=== PATIENT | female | born 1945 | race Caucasian/White ===

== ENCOUNTER 2019-09-07 11:03 | Day surgery (SDC) | payer MEDICARE ==
[~2019-09-07 11:03] MED LIST: CRAN500T2 PO; FURO20TA3 PO; GARL10002 PO; IV RINGERS,LACTATED 1000ML 1,000 ML IV SCH; LIDOCAINE 1% PF 2 ML VIAL. ID PRN; METO-239 PO; ONDANSETRON PF 4 MG/2 ML VIAL. IV PRN; PROCHLORPERAZINE 10 MG/2 ML VIAL. IV PRN; RIVA20TA2 PO; VIT1CAPS12 PO; [UNRECOGNIZED DRUG - OTHER] PO; fentaNYL PF VIAL 100 MCG/2 ML VIAL IV PRN
--- NOTE | 2019-09-07 12:14 | EKG ---
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
[2019-09-07 12:28] LABS: HEMATOCRIT 39.7 % (36.0-47.0); RED BLOOD COUNT 4.43 x10^6/uL (3.50-5.40); RED CELL DISTRIBUTION WIDTH 14.1 % (11.5-14.5); WHITE BLOOD COUNT 6.5 x10^3/uL (4.0-11.0)
[2019-09-07 12:37] LABS: CALCIUM 8.9 mg/dL (8.5-10.1); CREATININE 0.8 mg/dL (0.6-1.0); GFR 70.5; MAGNESIUM 1.9 mg/dL (1.8-2.4); POTASSIUM 3.6 mmol/L (3.5-5.1)
[2019-09-07 12:44] LABS: PROTHROMBIN TIME PATIENT 28.7 SEC (11.7-14.0)
[2019-09-07] MEDS ORDERED: PROPOFOL 20 ML IV ONE (13:00)
[2019-09-07] MEDS ORDERED: LIDOCAINE 2% TOPICAL JELLY 30GM TUBE. TP ONE (13:10)
[2019-09-07] MEDS ORDERED: LIDOCAINE 2% VISCOUS 15 ML SOLUTION. ONE (13:10)
[2019-09-07] MEDS ORDERED: BENZOCAINE ONE 20% MUCOSAL SPRAY. (13:10)
[2019-09-07 14:10] VITALS: BP 107/50
--- NOTE | 2019-09-07 14:11 | EKG ---
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
--- NOTE | 2019-09-07 15:27 | CARD ---
MR#: [id number] Date of Study: 09/07/2019 Ordering Physician: ALESSIA DIA, Referring Physician: LAESSIA DIA, Tech: Kirsten Villasenor APPROVED REPORT EXAM: Transesophageal echocardiogram with color flow Doppler and Synchronized Cardioversion. INDICATION Atrial Fibrillation Reason For Test : Rule out Intracardiac Thrombus. PROCEDURE After obtaining informed consent, patient underwent transesophageal echo in the PACU. Type of Sedation : General Anesthesia Sedation was administered by Sandy Felix. Sedation was achieved with Propofol 150 mg intravenously. Transesophageal probe was inserted and advanced into esophagus by Sumit Dia MD. The ROMARIO was performed without complications. Synchronized Cardioversion attempted: Successful Synchronized Cardioversion acheived with 200 Joules after 1 attempt(s). Rhythm following Synchronized Cardioversion: Normal Sinus Rhythm Throughout the procedure, the blood pressure, pulse oximetry, cardiac rhythm, and rate were monitored . LEFT VENTRICLE The left ventricle is normal size. There is normal left ventricular wall thickness. The systolic func tion is severely impaired. EF 30% There is severe global hypokinesis. Diastology not performed. No le ft ventricle thrombus noted on this study. RIGHT VENTRICLE The right ventricle is normal size. There is normal right ventricular wall thickness. The right ventr icular systolic function is normal. ATRIA The left atrium is borderline dilated. The right atrium size is normal. The interatrial septum is int act with no evidence for an atrial septal defect or patent foramen ovale as noted on 2-D or Doppler i maging. There is no thrombus noted in the left atrial appendage. AORTIC VALVE The aortic valve is normal in structure and function. Doppler and Color Flow revealed mild aortic reg urgitation. There is no significant aortic valvular stenosis. MITRAL VALVE The mitral valve is normal in structure and function. There is no evidence of mitral valve prolapse. There is no mitral valve stenosis. Doppler and Color-flow revealed trace to mild mitral regurgitation . TRICUSPID VALVE The tricuspid valve is normal in structure and function. Doppler and Color Flow revealed trace tricus pid regurgitation. There is no tricuspid valve stenosis. PULMONIC VALVE The pulmonic valve is not well visualized. Doppler and Color Flow revealed trace pulmonic valvular re gurgitation. There is no pulmonic valvular stenosis. GREAT VESSELS The aortic root is normal in size. The IVC is normal in size and collapses >50% with inspiration. Critical Notification Critical Value: No <Conclusion> The systolic function is severely impaired. EF 30% There is severe global hypokinesis. There is no thrombus noted in the left atrial appendage. Successful CVN to SR with a 200 J synchronized CVN. Signed by : Alessia Dia, Electronically Approved : 09/07/2019 15:26:22
== END 2019-09-07 14:30 | disposition home or self-care (01) ==
LOC: SURG 11:03
PROVIDERS: ATTEND Internal Medicine Cardiovascular Disease
DX: I48.91 Unspecified atrial fibrillation (principal); I34.0 Nonrheumatic mitral (valve) insufficiency; I37.1 Nonrheumatic pulmonary valve insufficiency; I10 Essential (primary) hypertension; E78.00 Pure hypercholesterolemia, unspecified; E66.9 Obesity, unspecified; Z87.01 Personal history of pneumonia (recurrent); Z87.39 Personal history of other diseases of the musculoskeletal system and connective tissue; Z90.710 Acquired absence of both cervix and uterus; Z90.11 Acquired absence of right breast and nipple; Z85.3 Personal history of malignant neoplasm of breast; Z98.51 Tubal ligation status
CPT/HCPCS: 36415; 80048; 83735; 85027; 85610; 92960; 93005; 93312; 93325; J2704; 93320

== ENCOUNTER → 2019-10-27 | Outpatient (CLI) | payer MEDICARE ==
[~2019-10-27] MED LIST changes: -IV RINGERS,LACTATED 1000ML 1,000 ML IV SCH; -LIDOCAINE 1% PF 2 ML VIAL. ID PRN; -ONDANSETRON PF 4 MG/2 ML VIAL. IV PRN; -PROCHLORPERAZINE 10 MG/2 ML VIAL. IV PRN; -fentaNYL PF VIAL 100 MCG/2 ML VIAL IV PRN
[2019-10-27 13:13] LABS: PROTHROMBIN TIME PATIENT 23.5 SEC (11.7-14.0)
[2019-10-27 13:26] LABS: ALBUMIN 3.2 g/dL (3.4-5.0); ALBUMIN/GLOBULIN RATIO 1.3 (1.0-1.7); CREATININE 0.9 mg/dL (0.6-1.0); GFR 61.5; POTASSIUM 3.9 mmol/L (3.5-5.1); TOTAL BILIRUBIN 0.7 mg/dL (0.2-1.0); TOTAL PROTEIN 5.7 g/dL (6.4-8.2)
--- NOTE | 2019-10-27 17:12 | RAD ---
CHEST PA LATERAL History: Fever and cough for 10 days Comparison: None. Findings: Frontal and lateral views of chest were obtained. The cardiomediastinal silhouette is normal. Sonographically it is slightly congested. Interstitial thickening or edema of the lung arrington noted. Small right basilar pleural effusion is present.. There is no acute bone abnormality. Surgical clips involve the upper abdomen. IMPRESSION: Mild pulmonary vasculature congestion with interstitial thickening which may represent interstitial edema. Small right pleural effusion. Electronically signed by: Tucker Barney MD (10/27/2019 5:09 PM) [facility]
== END | disposition home or self-care (01) ==
LOC: LAB 12:19
PROVIDERS: ATTEND Internal Medicine Cardiovascular Disease
DX: J90 Pleural effusion, not elsewhere classified (principal); J92.9 Pleural plaque without asbestos; I48.91 Unspecified atrial fibrillation
CPT/HCPCS: 36415; 71046; 80053; 85610

== ENCOUNTER 2019-11-16 06:39 | Outpatient (CLI) | payer MEDICARE ==
[2019-11-16] VITALS (11 sets, daily range): BP systolic 146–234; BP diastolic 63–112
[~2019-11-16] VITALS: Ht 160 cm; Wt 109.8 kg
[2019-11-16] MEDS ORDERED: LIDOCAINE 1% PF 2 ML VIAL. ONE (07:33)
[2019-11-16] MEDS ORDERED: IODIXANOL 320 MG/ML 100 ML VIAL. ONE (07:34)
[2019-11-16] MEDS ORDERED: HEPARIN for ARTERIAL LINE 1,500 ML ONE (07:34)
[2019-11-16 07:36] LABS: HEMATOCRIT 46.7 % (36.0-47.0); HEMOGLOBIN 14.9 g/dL (12.0-15.5); RED BLOOD COUNT 5.38 x10^6/uL (3.50-5.40); RED CELL DISTRIBUTION WIDTH 15.4 % (11.5-14.5); WHITE BLOOD COUNT 7.2 x10^3/uL (4.0-11.0)
[2019-11-16 07:42] LABS: CALCIUM 9.1 mg/dL (8.5-10.1); CREATININE 0.9 mg/dL (0.6-1.0); GFR 61.5; POTASSIUM 3.7 mmol/L (3.5-5.1)
[2019-11-16] MEDS ORDERED: CRESTOR5 MG PO (07:47)
[2019-11-16] MEDS ORDERED: AMIO200T4 PO (07:47)
[2019-11-16] MEDS ORDERED: VERAPAMIL 5 MG/2 ML VIAL. ONE (08:28)
[2019-11-16] MEDS ORDERED: HEPARIN for IV BOLUS 10,000 UNIT/10 ML VIAL. ONE (08:28)
[2019-11-16] MEDS ORDERED: fentaNYL PF VIAL 100 MCG/2 ML VIAL ONE (08:28)
[2019-11-16] MEDS ORDERED: NITROGLYCERIN 200 MCG/2 ML SYRINGE FOR CATH/VASC LAB. ONE ×2 (08:28→10:01)
[2019-11-16] MEDS ORDERED: MIDAZOLAM HCL/PF 2 MG/2 ML VIAL. ONE (08:28)
[2019-11-16] MEDS ORDERED: NITROGLYCERIN 200 MCG/2 ML SYRINGE FOR CATH/VASC LAB. ICAR ONE (09:15)
[2019-11-16] MEDS ORDERED: fentaNYL PF VIAL 100 MCG/2 ML VIAL IV ONE (09:15)
[2019-11-16] MEDS ORDERED: IODIXANOL 320 MG/ML 100 ML VIAL. IART ONE (09:15)
[2019-11-16] MEDS ORDERED: HEPARIN for IV BOLUS 10,000 UNIT/10 ML VIAL. IART ONE (09:15)
[2019-11-16] MEDS ORDERED: VERAPAMIL 5 MG/2 ML VIAL. IART ONE (09:15)
[2019-11-16] MEDS ORDERED: LIDOCAINE 1% PF 2 ML VIAL. INJ ONE (09:15)
[2019-11-16] MEDS ORDERED: NITROGLYCERIN 200 MCG/2 ML SYRINGE FOR CATH/VASC LAB. IART ONE (09:15)
[2019-11-16] MEDS ORDERED: MIDAZOLAM HCL/PF 2 MG/2 ML VIAL. IV ONE (09:15)
[2019-11-16] MEDS ORDERED: CONTRAST GIVEN. MC PRN (09:30)
[2019-11-16] MEDS ORDERED: NITROGLYCERIN SUBLINGUAL 0.4 MG BOTTLE OF 25. SL PRN (09:45)
[2019-11-16] MEDS ORDERED: 0.9 % SODIUM CHLORIDE 10 ML DISP.SYRIN. IV PRN (09:45)
--- NOTE | 2019-11-16 10:17 | NUR ---
Patient back from heart catheterization and unable to take BP in right arm because of mastectomy and lymphedema. Cannot take BP in left arm because of radial site used for heart catheterization, BP taken in the lower extremities, readings are elevated per monitor. Dr. Dia informed of BP readings and he stated, during the case BP's were 130's/80's. Pt. is eating breakfast, frequent reminders to not use left arm, family at bedside and updates given.
--- NOTE | 2019-11-16 11:09 | CARD ---
MR#: [id number] Date of Study: 11/16/2019 Ordering Physician: ALESSIA DIA, Referring Physician: ALESSIA DIA, Tech: RT Adrian (R) APPROVED REPORT Technologist: Vilma Hunt RT (R) Nurse: Priyanka Candelaria R.N. Procedure(s) performed: FLUORO TIME: 11.6 MIN DOSE: 61.58 Gycm2 Contrast: 47ml Moderate Sedation: 48 min Coronary angiography HISTORY The patient is a 74 year-old female with a history of : coronary artery disease, hypertension, dyslip idemia. INDICATION The indication(s) include : dyspnea. [facility] Clinical Frailty Scale [facility] Clinical Frailty Scale: Moderately Frail Heart Failure Heart Failure: Yes If Yes, Newly Diagnosed: No If Yes, HF Type: Diastolic Systolic If Yes, NYHA Class: Class II PROCEDURE NARRATIVE INFORMED CONSENT: After explaining the risks and benefits of the procedure and alternatives, informed consent was obtained. The patient was brought electively to the cardiac catheterization lab. A timeout was performed confi rming the patient's name, date of , procedure, and site of procedure. All necessary personnel w ere wearing the appropriate protective equipment and radiation monitor devices. (See nursing notes for medications administered). ACCESS: The left wrist was sterilely prepped and draped in the usual fashion. The left wrist was infiltrated with 1 mL of 2% lidocaine for subcutaneous anesthesia. A 6 [place] Terumo glide sheath was inserted into the left radial artery without difficulty. CORONARY ANGIOGRAPHY: Right and left coronary angiography was performed using a 6Fr JL3.5/JR4 catheter. Multiple attempts were made to obtain an LVEDP but due to subclavian tortuosity, an LVEDP was unable to be measured and the pigtail catheter was not able to be advanced. All catheter exchanges and advancements were perf ormed over a guidewire. CLOSURE: At case completion the right radial sheath was removed and a Terumo radial band was applied with 13 m l of air. COMPLICATIONS: The patient tolerated the procedure well and there were no immediate complications. FINDINGS: HEMODYNAMICS: AO: 128/78 CORONARY ANGIOGRAPHY: LM is a large caliber vessel with normal angiographic appearance. LAD is a large caliber vessel with a proximal 50% stenosis. LCx is a moderate caliber non-dominant vessel with normal angiographic appearance. OM1 is a moderate caliber vessel with normal angiographic appearance. RCA is a large caliber dominant vessel with normal angiographic appearance. RPDA and RPL are moderate caliber vessels with normal angiographic appearance. Conclusion 1. One vessel CAD Recommendations 1. Aggressive medical therapy. Signed by : Alessia Dia, Electronically Approved : 11/16/2019 11:09:08
[2019-11-16] MEDS ORDERED: SACU1TAB PO (11:11)
--- NOTE | 2019-11-16 11:12 | NUR ---
Entresto prescription given and a sample bottle by Dr. Dia for patient to start. Dr. Dia educated patient and daughters about use of medication and when patient would need to follow up. Dr. Dia also gave patient prescription for labs to be done in 2 weeks. Patient to follow up with Dr. Dia in the office on WednesdayFebruary 13 at 10:15 a.m. Patient and family verbalized understanding.
--- NOTE | 2019-11-16 12:16 | NUR ---
Left radial TR Band removed per protocol, site cleaned and dressing applied. Discharge instructions reviewed and copies given to patient and family member. All questions answered. Pt transported via wheelchair to outpatient parking and pt's daughter is driving her home.
== END 2019-11-16 12:25 | disposition home or self-care (01) ==
LOC: CCL 06:39
PROVIDERS: ATTEND Internal Medicine Cardiovascular Disease
DX: R06.09 Other forms of dyspnea (principal); I25.10 Atherosclerotic heart disease of native coronary artery without angina pectoris; E78.5 Hyperlipidemia, unspecified; I48.91 Unspecified atrial fibrillation; I77.1 Stricture of artery; I10 Essential (primary) hypertension; Z88.1 Allergy status to other antibiotic agents; Z88.6 Allergy status to analgesic agent; Z88.8 Allergy status to other drugs, medicaments and biological substances; Z91.018 Allergy to other foods; Z91.013 Allergy to seafood; Z79.899 Other long term (current) drug therapy
CPT/HCPCS: 36415; 80048; 85027; 85610; 93454; C1769; C1892; J1644; J2250; J3010; J3490; Q9967; 99152; 99153

== ENCOUNTER → 2020-07-09 | Outpatient (CLI) | payer MEDICARE ==
[2019-11-16 12:10] VITALS: BP 205/76
[~2020-07-09] MED LIST changes: +AMIO200T4 PO; +CRESTOR5 MG PO; +SACU1TAB PO
--- NOTE | 2020-07-09 14:41 | CARD ---
MR#: [id number] Date of Study: 07/09/2020 Ordering Physician: ALESSIA STERLING, Referring Physician: ALESSIA STERLING, Tech: Linda Hernandez [facility] APPROVED REPORT EXAM: Two-dimensional and M-mode echocardiogram with Doppler and color Doppler. Other Information Quality : Good INDICATION Non-Ischemic Cardiomyopathy 2D DIMENSIONS RVDd3.5 (2.9-3.5cm)Left Atrium(2D)4.7 (1.6-4.0cm) IVSd1.2 (0.7-1.1cm)Aortic Root(2D)3.8 (2.0-3.7cm) LVDd6.0 (3.9-5.9cm)LVOT Diameter2.2 (1.8-2.4cm) PWd1.0 (0.7-1.1cm)LVDs4.4 (2.5-4.0cm) FS (%) 20.0 %SV91.0 ml LVEF(%)40.0 (>50%) Aortic Valve AoV Peak Mulugeta.110.6cm/sAoV VTI26.8cm AO Peak GR.4.9mmHgLVOT Peak Mulugeta.103.6cm/s AO Mean GR.3mmHgAVA (VMAX)3.71cm2 DAFNE (VTI)3.20ls8QU P 1/2 Rihl219hv Mitral Valve MV E Zoojewym08.5cm/sMV DECEL ZGTB773iu MV A Zxkfbvpk913.3cm/sE/A Ratio0.3 Tricuspid Valve TR P. Rmnjyvsv202yn/sRAP MEWALGEL14ekOx TR Peak Gr.42jkHjNPLR78weSb Pulmonary Vein S1 Scxgvebv78.1cm/sD2 Hdmljuvu99.8cm/s LEFT VENTRICLE The Left Ventricle is mildly dilated. There is mild concentric left ventricular hypertrophy. Left rosa tricle systolic function is moderately impaired. The Ejection Fraction is 35%. There is global hypoki nesis of the left ventricle. Transmitral Doppler flow pattern is Grade I-abnormal relaxation pattern. RIGHT VENTRICLE The right ventricle is mildly dilated. Systolic function is mildly reduced. ATRIA The left atrium is mildly dilated. The right atrium is moderately dilated. The interatrial septum is intact with no evidence for an atrial septal defect or patent foramen ovale as noted on 2-D or Dopple r imaging. AORTIC VALVE The aortic valve is calcified but opens well. Doppler and Color Flow revealed mild aortic regurgitati on. There is no significant aortic valvular stenosis. MITRAL VALVE The mitral valve is calcified but opens well. There is no evidence of mitral valve prolapse. There is no mitral valve stenosis. Doppler and Color-flow revealed mild mitral regurgitation. TRICUSPID VALVE The tricuspid valve is normal in structure and function. Doppler and Color Flow revealed mild tricusp id regurgitation. There is moderate pulmonary hypertension. The PA pressure was estimated at 51 mmHg. There is no tricuspid valve stenosis. PULMONIC VALVE The pulmonic valve is not well visualized. Doppler and Color Flow revealed mild pulmonic valvular reg urgitation. There is no pulmonic valvular stenosis. GREAT VESSELS The aortic root is normal in size. The ascending aorta is mildly dilated at 3.5 cm. The IVC is dilate d and collapses <50% with inspiration. PERICARDIAL EFFUSION There is no evidence of significant pericardial effusion. Critical Notification Critical Value: No <Conclusion> Left ventricle systolic function is moderately impaired. The Ejection Fraction is 35%. Transmitral Doppler flow pattern is Grade I-abnormal relaxation pattern. Mild aortic regurgitation. Mild mitral regurgitation. Mild tricuspid regurgitation. There is moderate pulmonary hypertension. The PA pressure was estimated at 51 mmHg. There is no evidence of significant pericardial effusion. Signed by : Mundo Vargas, Electronically Approved : 07/09/2020 14:41:19
== END | disposition home or self-care (01) ==
LOC: ECHO 12:50
PROVIDERS: ATTEND Internal Medicine Cardiovascular Disease
DX: I08.8 Other rheumatic multiple valve diseases (principal); I27.20 Pulmonary hypertension, unspecified
CPT/HCPCS: 93306

== ENCOUNTER 2021-03-09 17:50 | Emergency (ER) | payer MEDICARE ==
[~2021-03-09] VITALS: Ht 157.5 cm; Wt 118.1 kg
[~2021-03-09 17:50] MED LIST changes: -AMIO200T4 PO; +AMIO200T6 PO; -CRAN500T2 PO; +CRAN500T3 PO
[2021-03-09] MEDS ORDERED: fentaNYL PF VIAL 100 MCG/2 ML VIAL ONE (18:38)
[2021-03-09] MEDS ORDERED: IV NORMAL SALINE 500ML BAG 500 ML IV ONE (18:45)
[2021-03-09] MEDS ORDERED: fentaNYL PF VIAL 100 MCG/2 ML VIAL IV ONE (18:45)
[2021-03-09 18:57] LABS: BILIRUBIN,URINE NEGATIVE (NEG); CLARITY,URINE CLEAR; COLOR,URINE YELLOW; NITRITE,URINE NEGATIVE (NEG); PROTEIN,URINE NEGATIVE (NEG-TRACE)
[2021-03-09 19:04] LABS: BACTERIA,URINE MODERATE /HPF (0-FEW); RBC,URINE 0 /HPF (0-2)
[2021-03-09 19:49] LABS: BASO % 0 % (0-3); EOS # 0.2 x10^3/uL (0.0-0.7); EOS % 2 % (0-3); HEMATOCRIT 36.7 % (36.0-47.0); HEMOGLOBIN 11.6 g/dL (12.0-15.5); LYMPH # 0.5 x10^3/uL (1.0-4.8); LYMPH % 5 % (24-48); MEAN CORPUSCULAR HEMOGLOBIN 28 pg (25-35); MEAN CORPUSCULAR HGB CONC 32 g/dL (31-37); MEAN CORPUSCULAR VOLUME 88 fL (79-100); MONO # 0.5 x10^3/uL (0.0-1.1); MONO % 5 % (0-9); NEUT # 9.3 x10^3/uL (1.8-7.7); NEUT % 88 % (31-73); PLATELET COUNT 214 x10^3/uL (140-400); RED BLOOD COUNT 4.16 x10^6/uL (3.50-5.40); RED CELL DISTRIBUTION WIDTH 14.9 % (11.5-14.5); WHITE BLOOD COUNT 10.5 x10^3/uL (4.0-11.0)
[2021-03-09 19:57] LABS: CALCIUM 8.5 mg/dL (8.5-10.1); CREATININE 0.8 mg/dL (0.6-1.0); GFR 70.3; POTASSIUM 4.6 mmol/L (3.5-5.1)
--- NOTE | 2021-03-09 19:59 | PHYS DOC ---
Past Medical History Past Medical History: A-Fib, CAD, High Cholesterol, Hypertension (BOSTON RHOADES DO) Past Surgical History: Gastric Bypass, Hysterectomy, Knee Replacement (Bilateral- Dr. Lito Sheldon ([place])) Additional Past Surgical Histo: cardio ablation,r mastectomy, (BOSTON RHOADES DO) Smoking Status: Never Smoker Alcohol Use: None Drug Use: None (BOSTON RHOADES DO) General Adult EDM: Chief Complaint: MECHANICAL FALL HPI: HPI: 75-year-old female presents via EMS status post mechanical trip and fall while at [facility] landing on her knees. Patient reports significant pain to left knee with associated swelling and bruising. EMS reports giving 100 mcg of fentanyl nasally, 100 mcg fentanyl IM, and 2.5mg Versed IM in route due to pain. Patient reports history of prior TKA by Dr. Lito Sheldon at [place]. Denies head trauma. Denies neck pain. Denies use of blood thinners. EMS reports deformity and shortening of leg. (BOSTON RHOADES DO) HPI: Assumed care at shift change-- Disposition pending Orthopedic consult. Initial plan was to transfer patient to [facility] where her previous orthopedic repair was performed. Previous ER provider discussed patient with [facility]--- Was informed that patients orthopedic doctor did not perform this type of repair and would be performed by another partner in the group. Patient advised she did not want to go to [facility] if not seen by her ortho doctor. Discussed patient with [facility] Orthopedic Dr Cast. Dr Cast in the ER and evaluated patient. Patient appears to be a complicated surgical case due to previous surgery. Dr Cast discussed patient with Dr Ziegler at [facility] who states he would accept patient. [facility] transfer line used. Patient accepted by Dr Olmedo. (MADELIN YU DO) Review of Systems: Review of Systems: Constitutional: Denies fever or chills Eyes: Denies redness or eye pain HENT: Denies nasal congestion or sore throat Respiratory: Denies cough or shortness of breath Cardiovascular: Denies chest pain or palpitations GI: Denies abdominal pain, nausea, or vomiting : Denies dysuria or hematuria Musculoskeletal: Denies back pain; reports left knee pain and swelling Integument: Denies rash or skin lesions; reports swelling and bruising of left knee Neurologic: Denies headache, focal weakness or sensory changes Complete systems were reviewed and found to be within normal limits, except as documented in this note. (BOSTON RHOADES DO) Heart Score: C/O Chest Pain: N/A (BOSTON RHOADES DO) C/O Chest Pain: N/A (MADELIN YU DO) Current Medications: Current Medications Medications (Trade) Dose Ordered Sig/Chanel Start Time Stop Time Status Last Admin Dose Admin Fentanyl Citrate (Fentanyl 2ml Vial) 50 mcg 1X ONCE 03/09/21 18:45 03/09/21 18:46 DC 03/09/21 18:47 50 MCG Sodium Chloride 500 ml @ 500 mls/hr 1X ONCE 03/09/21 18:45 03/09/21 19:44 DC 03/09/21 18:47 500 MLS/HR (BOSTON RHOADES DO) Allergies: Allergies: Allergies Coded Allergies Type Severity Reaction Last Updated Verified cephalexin Allergy Unknown Anaphylaxis 09/05/19 Yes codeine Allergy Unknown Unknown 09/05/19 Yes coffee (Coffea arabica) Allergy Unknown Nausea and Vomiting 09/05/19 Yes ibuprofen Allergy Unknown Unknown 09/05/19 Yes levofloxacin Allergy Unknown Unknown 09/05/19 Yes diogenes Allergy Unknown Hives 09/05/19 Yes papaya Allergy Unknown Hives 09/05/19 Yes shellfish derived Allergy Unknown Anaphylaxis 09/05/19 Yes sulfamethoxazole Allergy Unknown Unknown 09/05/19 Yes trimethoprim Allergy Unknown Unknown 09/05/19 Yes (BOSTON RHOADES DO) Physical Exam: PE: Constitutional: Well developed, morbidly obese, no acute distress, non-toxic appearance HENT: Normocephalic, atraumatic Eyes: Conjunctiva normal, no discharge Neck: Normal range of motion, no midline tenderness, supple Lungs & Thorax: No respiratory distress, equal chest rise and fall Abdomen: Soft, no tenderness; pelvis stable and nontender Skin: Warm, dry, no erythema, ecchymosis and swelling to lateral left knee Back: No midline tenderness, no CVA tenderness Extremities: Left knee swelling and ecchymosis with shortening of limb in comparison to right leg, distal DP and PT +2 Neurologic: Alert and oriented X 3, normal motor function, normal sensory function, no focal deficits noted Psychologic: Affect normal, judgment normal (BOSTON RHOADES DO) Current Patient Data: Labs: Laboratory Tests Test 03/09/21 18:50 Urine Collection Type Unknown Urine Color Yellow Urine Clarity Clear Urine pH 7.0 (<5.0-8.0) Urine Specific [place] <=1.005 (1.000-1.030) Urine Protein Negative mg/dL (NEG-TRACE) Urine Glucose (UA) Negative mg/dL (NEG) Urine Ketones (Stick) Negative mg/dL (NEG) Urine Blood Negative (NEG) Urine Nitrite Negative (NEG) Urine Bilirubin Negative (NEG) Urine Urobilinogen Dipstick 1.0 mg/dL (0.2 mg/dL) Urine Leukocyte Esterase Negative (NEG) Urine RBC 0 /HPF (0-2) Urine WBC 1-4 /HPF (0-4) Urine Bacteria Moderate /HPF (0-FEW) Vital Signs: Vital Signs Date Time Temp Pulse Resp B/P (MAP) Pulse Ox O2 Delivery O2 Flow Rate FiO2 03/09/21 19:31 64 18 195/76 (115) 94 Nasal Cannula 2.0 03/09/21 18:01 98.0 98.0 (BOSTON RHOADES DO) EKG: EKG: @1806 Sinus bradycardia at 59bpm, NO ST elevation, QRS 102ms, QT/QTc 472/472ms, baseline artifact noted, (BOSTON RHOADES DO) Radiology/Procedures: Radiology/Procedures: [] (BOSTON RHOADES DO) Course & Med Decision Making: Course & Med Decision Making Pertinent Labs and Imaging studies reviewed. (See chart for details) Patient presents via EMS status post mechanical trip and fall at [facility]. History of prior total knee arthroplasty by Dr. Lito Sheldon at [facility]. Patient received multiple doses of pain medication in route per EMS. Deformity noted to left lower extremity in comparison to right. Ice applied. Further pain medication provided. Concern for acute fracture given patient's findings. Kerri- operative laboratory data obtained and partially pending. EKG stable. CXR and XR of left hip and left knee obtained. Left knee imaging with fracture to distal femur above arthroplasty component. Patient requesting to be evaluated by her orthopedist- Dr. Lito Sheldon. Discussed case with Dr. Barrios (Orthopedics vibration technician for Dr. Sheldon). Dr. Barrois reports Dr. Sheldon does not perform that type of procedure. Discussed with patient regarding, who reports if she isn't able to see Dr. Sheldon then she could stay her at [place] if the orthopedist "specializes" in the type of procedure. Dr. Cast (orthopedics) therefore paged and pending call back. 1944- Sign out given to Dr. Yu for further evaluation and final disposition. . Discussed current findings and plan with patient and family, who acknowledge understanding and agreement. (BOSTON RHOADES DO) Dragon Disclaimer: Dragon Disclaimer: This electronic medical record was generated, in whole or in part, using a voice recognition dictation system. (BOSTON RHOADES DO) Departure Departure Impression: Primary Impression: Fracture of distal femur Qualified Codes: S72.402A - Unspecified fracture of lower end of left femur, initial encounter for closed fracture Additional Impression: Presence of total knee joint prosthesis Qualified Codes: Z96.653 - Presence of artificial knee joint, bilateral Disposition: 02 SHORT TERM HOSPITAL Condition: STABLE Referrals: Elis FULLER MD (PCP) BOSTON RHOADES DO March 09, 2021 19:59 MADELIN YU DO March 09, 2021 21:45
[2021-03-09 20:03] LABS: ALBUMIN 3.4 g/dL (3.4-5.0); ALBUMIN/GLOBULIN RATIO 1.1 (1.0-1.7); MAGNESIUM 1.9 mg/dL (1.8-2.4); TOTAL BILIRUBIN 0.6 mg/dL (0.2-1.0); TOTAL PROTEIN 6.6 g/dL (6.4-8.2)
[2021-03-09 20:13] LABS: CREATINE KINASE 61 U/L (26-192)
[2021-03-09 20:26] LABS: % BANDS 7 % (0-9); % EOS 1 % (0-5); % LYMPHS 8 % (24-48); % MONOS 6 % (0-10); % SEGS 78 % (35-66); PLT ESTIMATE ADEQUATE (ADEQUATE)
[2021-03-09] MEDS ORDERED: fentaNYL PF VIAL 100 MCG/2 ML VIAL IVP ONE ×2 (20:30→22:30)
--- NOTE | 2021-03-09 20:36 | RAD ---
XR BILATERAL HIP (WITH OR WITHOUT PELVIS) LEFT 2 VIEWS, XR KNEE_LT 1-2 VIEWS 03/09/2021 7:19 PM INDICATION: Pain, shortening status post fall. History of total knee arthroplasty. COMPARISON: None available. TECHNIQUE: AP view the pelvis and single dedicated view of each hip provided. 2 views of the left kn ee are provided. FINDINGS/ IMPRESSION: 1. Pelvis: Surgical clips are identified in the abdomen and lower pelvis. There is no acute fracture or dislocation. Joint spaces are maintained. Bone mineralization is within normal limits. Regional so ft tissues are within normal limits. There is no soft tissue gas or osseous erosion. No radiopaque fo reign body. 2. Left knee: Left total knee arthroplasty. There is supracondylar fracture of the distal femoral wiley physis with comminution displaced fracture fragment identified anteriorly measuring 3.1 cm. There is patella baja. Tibial component appears intact. No fibular fracture. Regional soft tissue swelling is present. Limited evaluation for joint effusion given degree of edema and subcutaneous fat. Electronically signed by: Nanci Torrez MD (03/09/2021 8:34 PM) [facility]
--- NOTE | 2021-03-09 20:37 | RAD ---
XR CHEST 1V 03/09/2021 7:19 PM INDICATION: Preoperative planning COMPARISON: 10/27/2019 TECHNIQUE: Portable frontal view of the chest is provided. FINDINGS: The cardiomediastinal silhouette is similar in appearance. Small right pleural effusion appears linus deena increased. There is adjacent compressive atelectasis versus infiltrate. Mild pulmonary vascular congestion. No pneumothorax. No suspicious osseous abnormality. IMPRESSION: Mild congestive heart failure with increase in small right pleural effusion with adjacent basilar ate lectasis versus infiltrate. Mild pulmonary vascular congestion. Electronically signed by: Nanci Torrez MD (03/09/2021 8:35 PM) [facility]
[2021-03-09 22:06] VITALS: BP 156/82
--- NOTE | 2021-03-10 01:36 | CONS ---
DATE OF CONSULTATION: 03/09/2021 CONSULTING PHYSICIAN: Dr. Willie Yu REASON FOR CONSULTATION: Left femur shattered. HISTORY OF PRESENT ILLNESS: The patient is a 75-year-old female, patient of Dr. Palumbo for her primary care physician who had gotten remotely a bilateral total knee arthroplasties done at [place] by Dr. Sheldon and today fell, landed on her knee and had immediate onset of pain, deformity, and inability to ambulate. She denies any other injury aside from just bruising or elbow, but otherwise is very functional as far as her elbow goes. Denies any loss of consciousness. No head injury, visual change, chest pain, shortness of breath or other constitutional symptoms. PHYSICAL EXAMINATION: On examination, she has severe pain with any movement of the left knee, really not possible to definitively establish whether her extensor mechanism is intact or not. She has gross instability of the knee due to the fracture, overlying skin is intact as is her distal pulses and sensation. Compartments are soft. Calf nontender. IMAGING: X-rays show a comminuted periprosthetic distal femur fracture above an otherwise well fixated total knee arthroplasty. She appears to have compromise of the patella based on the x-rays as the superior pole appears to be significantly elevated. She also has well-fixated tibial component, but has very little distal bone and what appears to be a cruciate retaining [employer] knee. TREATMENT PLAN: I discussed with the patient and family, my concern that I really do not have details on her implant at this point as that was done at [facility]. I did call Dr. Sheldon's group and the trauma surgeon environmental remediation consultant, Dr. Torres and answered my call back and I actually gave some my concerns to him about the amount and quality of bone attached to the femoral component of the knee appears to be very minimal and I am concerned with getting reasonable fixation with a plate and/or intramedullary melani fixation and it is very possible that with her extensor mechanism that even without consideration of her extensor mechanism compromise due to the apparent patellar fracture that she very well may need potentially a distal femoral replacement with a very significant constrained perhaps a rotating hinge construct, which again would be even more complicated by potentially incompetent extensor mechanism and frankly neither of us felt comfortable on her own with the option of fracture fixation alone. Originally, the emergency department outgoing physician, Dr. Méndez had called [place], but there is not a revision knee specialist in Dr. Sheldon's group and the other physician that does type of work at [facility] was not environmental remediation consultant or immediately available. Dr. Torres did contact one of his other colleagues, Dr. Cordova at [facility], who is a fellowship trained joint surgeon, who agreed to accept an consult on the patient and between the two of them, they would be able to handle management of this complex case. I spoke with the patient and the patient and family agree with this plan of action. They had originally preferred [facility]; however, I told them that the specialist there is not environmental remediation consultant, nor is he responding right at the moment laid on the Wednesday evening and they are willing to go to [place] under the care as discussed above. I returned to the emergency department and spoke with Dr. Yu who arranged appropriate transfer as a result. CONSULTING PHYSICIAN: Dr. Willie Yu REASON FOR CONSULTATION: Left femur shattered. HISTORY OF PRESENT ILLNESS: The patient is a 75-year-old female, patient of Dr. Palumbo for her primary care physician who had gotten remotely a bilateral total knee arthroplasties done at [place] by Dr. Sheldon and today fell, landed on her knee and had immediate onset of pain, deformity, and inability to ambulate. She denies any other injury aside from just bruising or elbow, but otherwise is very functional as far as her elbow goes. Denies any loss of consciousness. No head injury, visual change, chest pain, shortness of breath or other constitutional symptoms. PHYSICAL EXAMINATION: On examination, she has severe pain with any movement of the left knee, really not possible to definitively establish whether her extensor mechanism is intact or not. She has gross instability of the knee due to the fracture, overlying skin is intact as is her distal pulses and sensation. Compartments are soft. Calf nontender. IMAGING: X-rays show a comminuted periprosthetic distal femur fracture above an otherwise well fixated total knee arthroplasty. She appears to have compromise of the patella based on the x-rays as the superior pole appears to be significantly elevated. She also has well-fixated tibial component, but has very little distal bone and what appears to be a cruciate retaining [employer] knee. TREATMENT PLAN: I discussed with the patient and family, my concern that I really do not have details on her implant at this point as that was done at [facility]. I did call Dr. Sheldon's group and the trauma surgeon environmental remediation consultant, Dr. Torres and answered my call back and I actually gave some my concerns to him about the amount and quality of bone attached to the femoral component of the knee appears to be very minimal and I am concerned with getting reasonable fixation with a plate and/or intramedullary melani fixation and it is very possible that with her extensor mechanism that even without consideration of her extensor mechanism compromise due to the apparent patellar fracture that she very well may need potentially a distal femoral replacement with a very significant constrained perhaps a rotating hinge construct, which again would be even more complicated by potentially incompetent extensor mechanism and frankly neither of us felt comfortable on her own with the option of fracture fixation alone. Originally, the emergency department outgoing physician, Dr. Méndez had called [place], but there is not a revision knee specialist in Dr. Sheldon's group and the other physician that does type of work at [facility] was not environmental remediation consultant or immediately available. Dr. Torres did contact one of his other colleagues, Dr. Cordova at [facility], who is a fellowship trained joint surgeon, who agreed to accept an consult on the patient and between the two of them, they would be able to handle management of this complex case. I spoke with the patient and the patient and family agree with this plan of action. They had originally preferred [facility]; however, I told them that the specialist there is not environmental remediation consultant, nor is he responding right at the moment laid on the Wednesday evening and they are willing to go to [place] under the care as discussed above. I returned to the emergency department and spoke with Dr. Yu who arranged appropriate transfer as a result. AKILA/TENA PLEITEZ: Renetta TID: [id number]
== END 2021-03-09 22:36 | disposition short-term general hospital (02) ==
LOC: ER 17:50
DX: S72.402A Unspecified fracture of lower end of left femur, initial encounter for closed fracture (principal); Z20.822 Contact with and (suspected) exposure to COVID-19; M25.552 Pain in left hip; E78.00 Pure hypercholesterolemia, unspecified; I48.91 Unspecified atrial fibrillation; I25.10 Atherosclerotic heart disease of native coronary artery without angina pectoris; I10 Essential (primary) hypertension; Z95.1 Presence of aortocoronary bypass graft; Z96.653 Presence of artificial knee joint, bilateral; Z88.1 Allergy status to other antibiotic agents; Z88.5 Allergy status to narcotic agent; Z88.2 Allergy status to sulfonamides; Z91.018 Allergy to other foods; Z91.013 Allergy to seafood; Z88.8 Allergy status to other drugs, medicaments and biological substances; W01.0XXA Fall on same level from slipping, tripping and stumbling without subsequent striking against object, initial encounter; Y93.89 Activity, other specified; Y92.89 Other specified places as the place of occurrence of the external cause; Y99.8 Other external cause status
CPT/HCPCS: 29505; 36415; 71045; 73502; 73560; 80053; 81001; 82553; 83735; 85007; 85025; 87086; 87426; 96374; 96376; 99285; J3010; J7040; U0003; U0005; 87077; 87186

== ENCOUNTER 2021-04-02 12:38 | Emergency (ER) | payer MEDICARE ==
[~2021-04-02] VITALS: Ht 154.9 cm; Wt 109.0 kg
--- NOTE | 2021-04-02 12:56 | PHYS DOC ---
Past Medical History Past Medical History: A-Fib, CAD, High Cholesterol, Hypertension Past Surgical History: Gastric Bypass, Hysterectomy, Knee Replacement Additional Past Surgical Histo: cardio ablation,r mastectomy, Smoking Status: Never Smoker Alcohol Use: None Drug Use: None General Adult EDM: Chief Complaint: SHORTNESS OF BREATH HPI: HPI: 75-year-old female recently had a hip replacement surgery who presents emergency department Because she is having difficulty breathing out of her nose. She reports that she is a nose breather. She reports that she can breathe fine through her mouth just cannot breathe through her nose. She is breathing comfortably in examination room without any distress and her oxygen levels are within normal limits. Onset today. Location generalized. Duration constant. No relieving factors. Review of systems is negative for chest pain abdominal pain vomiting diaphoresis fevers chills. All other review of systems is negative. Heart Score: C/O Chest Pain: No Risk Factors: Risk Factors: DM, Current or recent (<one month) smoker, HTN, HLP, family history of CAD, obesity. Risk Scores: Score 0 - 3: 2.5% MACE over next 6 weeks - Discharge Home Score 4 - 6: 20.3% MACE over next 6 weeks - Admit for Clinical Observation Score 7 - 10: 72.7% MACE over next 6 weeks - Early Invasive Strategies Allergies: Allergies: Allergies Coded Allergies Type Severity Reaction Last Updated Verified cephalexin Allergy Unknown Anaphylaxis 09/05/19 Yes codeine Allergy Unknown Unknown 09/05/19 Yes ibuprofen Allergy Unknown Unknown 09/05/19 Yes levofloxacin Allergy Unknown Unknown 09/05/19 Yes diogenes Allergy Unknown Hives 09/05/19 Yes papaya Allergy Unknown Hives 09/05/19 Yes shellfish derived Allergy Unknown Anaphylaxis 09/05/19 Yes sulfamethoxazole Allergy Unknown Unknown 09/05/19 Yes trimethoprim Allergy Unknown Unknown 09/05/19 Yes coffee (Coffea arabica) Adverse Reaction Unknown Nausea and Vomiting 03/09/21 Yes Physical Exam: PE: Constitutional: Well developed, well nourished, no acute distress, non-toxic appearance. [] HENT: Normocephalic, atraumatic, bilateral external ears normal, oropharynx moist, no oral exudates, nose normal. [] Eyes: PERRLA, EOMI, conjunctiva normal, no discharge. [] Neck: Normal range of motion, no tenderness, supple, no stridor. [] Cardiovascular:Heart rate regular rhythm, no murmur [] Lungs & Thorax: Bilateral breath sounds clear to auscultation []. No wheezing. No crackles. Normal inspiratory and expiratory phase. Abdomen: Bowel sounds normal, soft, no tenderness, no masses, no pulsatile masses. [] Skin: Warm, dry, no erythema, no rash. [] Back: No tenderness, no CVA tenderness. [] Extremities: No tenderness, no cyanosis, no clubbing, ROM intact, no edema. [] Neurologic: Alert and oriented X 3, normal motor function, normal sensory function, no focal deficits noted. [] Psychologic: Affect normal, judgement normal, mood normal. [] EKG: EKG: [] EKG shows sinus rhythm with a mildly bradycardic rate. ST segments show nonspecific repolarization abnormalities. Does not meet STEMI criteria. Not suggestive of acute ischemia. Radiology/Procedures: Radiology/Procedures: [] Course & Med Decision Making: Course & Med Decision Making Pertinent Labs and Imaging studies reviewed. (See chart for details) [] 75-year-old female presenting with difficulty breathing through her nose but can breathe through her mouth. Her work-up in the emergency department is largely unremarkable. Her proBNP is elevated however the patient does not have crackles in her chest x-ray is normal and she is oxygenating well. On second examination around 1600 the patient is much improved and denies any difficulty b reathing. Her heart rate is within normal limits. Her oxygen levels are within normal limits. Plan is to discharge patient home to follow-up with PCP in 1 to 2 days. If her symptoms return she is to return to the emergency department. Dragon Disclaimer: Dragkarma Disclaimer: This electronic medical record was generated, in whole or in part, using a voice recognition dictation system. Departure Departure Impression: Primary Impression: Nasal discomfort Disposition: 01 HOME / SELF CARE / HOMELESS Condition: STABLE Referrals: Elis FULLER MD (PCP) Patient Instructions: Shortness of Breath Additional Instructions: EMERGENCY DEPARTMENT GENERAL DISCHARGE INSTRUCTIONS Follow-up with your primary physician in 1 to 2 days. Return to the emergency department if you have any new or concerning findings. Thank you for coming to [facility] Emergency Department (ED) today and trusting us with you care. We trust that you had a positive experience in our Emergency Department. If you wish to speak to the department management, you may call the Director at [phone]. Follow up is important in emergency/acute care visits. This condition should be evaluated by your primary care physician and any necessary consulting services for continued management within a few days (1-2) after discharge. Return to the emergency department if you have any new or concerning symptoms including but not limited to fever, chills, nausea, vomiting, intractable pain, any new rashes, chest pain, shortness of breath, uncontrolled bleeding, difficulty breathing, and/or vision loss. 1. Do you have a private Doctor? If you do not have a private doctor, please ask for a resource list of physicians or clinics that may be able to assist you with follow up care. 2. If a lab test or culture has been done and does not come back immediately, your results will be reviewed and you will be notified if you need a change in treatment. 3. Your care today has been supervised by a physician who is specially trained in emergency care. Many problems require more than one evaluation for a complete diagnosis and treatment. We recommend that you schedule your follow up appointment as recommended to ensure complete treatment of you illness or injury. If you are unable to obtain follow up care and continue to have a problem, or if your condition worsens, we recommend that you return to the ED. 4. We are not able to safely determine your condition over the phone nor are we able to give sound medical advice over the phone. For these safety reasons, if you call for medical advice we will ask you to come to the ED for further evaluation. IF YOUR SYMPTOMS WORSEN OR NEW SYMPTOMS DEVELOP, OR YOU HAVE CONCERNS ABOUT YOUR CONDITION; OR IF YOUR CONDITION WORSENS WHILE YOU ARE WAITING FOR YOUR FOLLOW UP APPOINTMENT; EITHER CONTACT YOUR PRIMARY CARE DOCTOR, THE PHYSICIAN WHOSE NAME AND NUMBER YOU WERE GIVEN, OR RETURN TO THE ED IMMEDIATELY. Scripts Fluticasone Propionate (Flonase Allergy Relief) 9.9 Ml [place].susp 2 SPRAYS NS DAILY for 7 Days, #9.9 ML 0 Refills Prov: CATHY JACOBS MD 04/02/21 CATHY JACOBS MD Apr 02, 2021 12:56
[2021-04-02 14:00] LABS: BASO # 0.1 x10^3/uL (0.0-0.2); BASO % 1 % (0-3); EOS # 0.1 x10^3/uL (0.0-0.7); EOS % 3 % (0-3); HEMATOCRIT 32.3 % (36.0-47.0); HEMOGLOBIN 10.6 g/dL (12.0-15.5); LYMPH # 0.7 x10^3/uL (1.0-4.8); LYMPH % 13 % (24-48); MEAN CORPUSCULAR HEMOGLOBIN 29 pg (25-35); MEAN CORPUSCULAR HGB CONC 33 g/dL (31-37); MEAN CORPUSCULAR VOLUME 88 fL (79-100); MONO # 0.6 x10^3/uL (0.0-1.1); MONO % 12 % (0-9); NEUT # 3.9 x10^3/uL (1.8-7.7); NEUT % 72 % (31-73); PLATELET COUNT 266 x10^3/uL (140-400); RED BLOOD COUNT 3.65 x10^6/uL (3.50-5.40); RED CELL DISTRIBUTION WIDTH 18.2 % (11.5-14.5); WHITE BLOOD COUNT 5.4 x10^3/uL (4.0-11.0)
[2021-04-02 14:26] LABS: CALCIUM 8.7 mg/dL (8.5-10.1); CREATININE 1.1 mg/dL (0.6-1.0); GFR 48.7; POTASSIUM 3.8 mmol/L (3.5-5.1)
[2021-04-02 14:29] LABS: ALBUMIN 3.1 g/dL (3.4-5.0); DIRECT BILIRUBIN 0.3 mg/dL (0.0-0.2); TOTAL BILIRUBIN 0.8 mg/dL (0.2-1.0); TOTAL PROTEIN 6.1 g/dL (6.4-8.2)
--- NOTE | 2021-04-02 14:36 | EKG ---
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
[2021-04-02] MEDS ORDERED: MORPHINE IR 15 MG TABLET PO ONE ×2 (15:00)
--- NOTE | 2021-04-02 15:46 | RAD ---
EXAM: AP View of the chest DATE: 04/02/2021 2:11 PM INDICATION: Reason: SOA / Spl. Instructions: / History: COMPARISON: 03/09/2021 FINDINGS: The heart is not enlarged. Mediastinal and hilar contours are normal. No focal parenchymal airspace opacity. Trace right pleural effusion. Patchy opacities right lung base. AC joint degenerative changes are see n. Decreased bone mineral density. IMPRESSION: 1. Trace right pleural effusion. Patchy opacities right lung base linear atelectasis or consolidatio n, significantly improved compared 03/09/2021 Electronically signed by: Rod Avila MD (04/02/2021 3:43 PM) LAURA
[2021-04-02] MEDS ORDERED: FLUT9.9S NS (16:37)
[2021-04-02 17:15] VITALS: BP 119/65
== END 2021-04-02 17:22 | disposition home or self-care (01) ==
LOC: ER 12:38
DX: J34.89 Other specified disorders of nose and nasal sinuses (principal); I48.91 Unspecified atrial fibrillation; I25.10 Atherosclerotic heart disease of native coronary artery without angina pectoris; E78.00 Pure hypercholesterolemia, unspecified; I10 Essential (primary) hypertension; Z98.84 Bariatric surgery status; Z88.1 Allergy status to other antibiotic agents; Z88.5 Allergy status to narcotic agent; Z88.2 Allergy status to sulfonamides; Z88.8 Allergy status to other drugs, medicaments and biological substances; Z91.013 Allergy to seafood; Z91.018 Allergy to other foods
CPT/HCPCS: 36415; 71045; 80048; 80076; 83690; 83880; 84484; 85025; 93005; 99283-25

== ENCOUNTER → 2021-10-20 | Outpatient (CLI) | payer MEDICARE ==
[~2021-10-20] MED LIST changes: +AMIO200T53 PO; -AMIO200T6 PO; +FLUT9.9S NS
--- NOTE | 2021-10-22 12:08 | CARD ---
MR#: [id number] Date of Study: 10/20/2021 Ordering Physician: VON STERLING, Referring Physician: VON STERLING, Tech: Meredith Alvarenga [facility] [place] APPROVED REPORT EXAM: Two-dimensional and M-mode echocardiogram with Doppler and color Doppler. Other Information Quality : AverageHR: 70bpm Rhythm : NSR INDICATION Dyspnea RISK FACTORS Hypertension Obesity Hyperlipidemia 2D DIMENSIONS RVDd3.8 (2.9-3.5cm)Left Atrium(2D)6.2 (1.6-4.0cm) IVSd1.1 (0.7-1.1cm)Aortic Root(2D)4.1 (2.0-3.7cm) LVDd5.9 (3.9-5.9cm)LVOT Diameter2.3 (1.8-2.4cm) PWd1.2 (0.7-1.1cm)LVDs4.4 (2.5-4.0cm) FS (%) 26.0 %SV87.9 ml LVEF(%)50.3 (>50%) Aortic Valve AoV Peak [place].137.7cm/sAoV VTI35.9cm AO Peak GR.7.6mmHgLVOT Peak [place].108.3cm/s AO Mean GR.3mmHgAVA (VMAX)3.19cm2 AI P 1/2 [id number] Mitral Valve MV E Owsooaja811.8cm/s Tricuspid Valve TR P. Kauvpbed292jy/sTR Peak Gr.45mmHg LEFT VENTRICLE The Left Ventricle is mildly dilated. There is borderline concentric left ventricular hypertrophy. Th e left ventricular systolic function is mildly decreased EF 40-45% There is mild global hypokinesis. Transmitral Doppler flow pattern is Grade II-pseudonormal filling dynamics. RIGHT VENTRICLE The right ventricle is normal size. There is normal right ventricular wall thickness. The right ventr icular systolic function is normal. ATRIA The left atrium is moderately dilated. The right atrium is mildly dilated. The interatrial septum is intact with no evidence for an atrial septal defect or patent foramen ovale as noted on 2-D or Dopple r imaging. AORTIC VALVE The aortic valve is normal in structure and function. Doppler and Color Flow revealed moderate aortic regurgitation. There is no significant aortic valvular stenosis. MITRAL VALVE The mitral valve is normal in structure and function. There is no evidence of mitral valve prolapse. There is no mitral valve stenosis. Doppler and Color-flow revealed moderate mitral regurgitation. TRICUSPID VALVE The tricuspid valve is normal in structure and function. Doppler and Color Flow revealed mild tricusp id regurgitation. Estimated PAP 60 mmHg. There is no tricuspid valve stenosis. PULMONIC VALVE The pulmonary valve is normal in structure and function. Doppler and Color Flow revealed mild pulmoni c valvular regurgitation. There is no pulmonic valvular stenosis. GREAT VESSELS The aortic root is mildly enlarged at 4.1 cm. The IVC is dilated and collapses <50% with inspiration. PERICARDIAL EFFUSION There is no evidence of significant pericardial effusion. Critical Notification Critical Value: No <Conclusion> The left ventricular systolic function is mildly decreased EF 40-45% There is mild global hypokinesis. Doppler and Color Flow revealed moderate aortic regurgitation. Doppler and Color-flow revealed moderate mitral regurgitation. Doppler and Color Flow revealed mild tricuspid regurgitation. Estimated PAP 60 mmHg. The IVC is dilated and collapses <50% with inspiration. The aortic root is mildly enlarged at 4.1 cm. Signed by : Von Sterling, Electronically Approved : 10/22/2021 12:08:36
== END ==
LOC: ECHO 12:48
PROVIDERS: ATTEND Internal Medicine Cardiovascular Disease
DX: I08.8 Other rheumatic multiple valve diseases (principal); I77.810 Thoracic aortic ectasia; I48.91 Unspecified atrial fibrillation
CPT/HCPCS: 93306